=== PATIENT | male | born 1945 ===

== ENCOUNTER 2019-10-31 10:54 | Outpatient (CLI) | payer MEDICARE, SELFPAY ==
--- NOTE | ~2019-10-31 | CT_ITS ---
EXAMINATION:CT lung screening DATE: 10/31/2019 11:52 INDICATION: Nicotine dependence, unspecified, uncomplicated. Smoker with 50 pack year history. TECHNIQUE: Computed tomography (CT) of the chest was performed without intravenous contrast. Automate d exposure control and iterative reconstruction technique were employed. The dose-length product (DLP ) was 84.53 mGy-cm. COMPARISON: None. FINDINGS: There is moderate emphysema. There is mild atelectasis in the inferior lungs. Calcified tracy ateral lung nodules are consistent with old granulomatous disease. No pleural effusion. The heart siz e is normal. There are coronary artery calcifications. No pericardial effusion. There is mild mediast inal lymphadenopathy, likely reactive. There are gallstones in the gallbladder. Calcifications in the liver and spleen are consistent with old granulomatous disease. There is severe thoracic spondylosis . There is mild chronic anterior wedging of multiple thoracic vertebral bodies. IMPRESSION: 1. Lung-RADS category 1: Negative. Continue annual screening with noncontrast low-dose chest CT in 12 months. Reviewed, dictated and finalized at location A. [employer] IMPRESSION: 1. Lung-RADS category 1: Negative. Continue annual screening with noncontrast l ow-dose chest CT in 12 months.
== END 2019-10-31 10:55 | disposition home or self-care (01) ==
PROVIDERS: PCP Family Medicine; Visit Provider Family Medicine
DX: Z12.2 Encounter for screening for malignant neoplasm of respiratory organs (principal); Z87.891 Personal history of nicotine dependence
CPT/HCPCS: G0297